=== PATIENT | male | born 1975 | race African-American/Black ===

== ENCOUNTER 2018-11-19 08:50 | Emergency (ER) | payer OTHER ==
[~2018-11-19] VITALS: Ht 165.1 cm; Wt 74.8 kg
[~2018-11-19 08:50] MED LIST: AMOX1TAB10 PO; HYDR-2761 PO; HYDR-3164 PO
[2018-11-19 09:13] VITALS: BP 132/97
[2018-11-19] MEDS ORDERED: IBUP-1060 PO (09:22)
[2018-11-19] MEDS ORDERED: HYDR-3164 PO (09:22)
[2018-11-19] MEDS ORDERED: PENI500T PO (09:22)
--- NOTE | 2018-11-19 09:22 | PHYS DOC ---
Past Medical History Past Medical History: No Pertinent History Past Surgical History: Other Additional Past Surgical Histo: JAW SX FOR MANDIBLE FX Smoking: Cigarettes, Less than 1pk/day Additional Information: 1/2 PACK/DAY Alcohol Use: Occasionally Drug Use: Marijuana Adult General Chief Complaint Chief Complaint: DENTAL PROBLEM HPI HPI Patient is a 43 year old male who presents with complaining of tooth pain. Patient is complaining of left lower jaw and tooth pain for 3 or 4 days associated with facial edema and nausea that gradually getting worse. Patient complaining of subjective fever without shortness of breath and dysphasia. Patient smokes half pack a day . Patient stated he took Tylenol and ibuprofen without improvement of his pain. Review of Systems Review of Systems Constitutional: Reports subjective fever and chills Eyes: Denies change in visual acuity, redness, or eye pain [] HENT: Denies nasal congestion or sore throat , reports dental pain and facial swelling[] Respiratory: Denies cough or shortness of breath [] Cardiovascular: No additional information not addressed in HPI [] GI: Denies abdominal pain, nausea, vomiting, bloody stools or diarrhea [] : Denies dysuria or hematuria [] Musculoskeletal: Denies back pain or joint pain [] Integument: Denies rash or skin lesions [] Neurologic: Denies headache, focal weakness or sensory changes [] Endocrine: Denies polyuria or polydipsia [] All other systems were reviewed and found to be within normal limits, except as documented in this note. Current Medications Current Medications Current Medications Medications (Trade) Dose Ordered Sig/Bony Start Time Stop Time Status Last Admin Dose Admin Acetaminophen/ Hydrocodone Bitart (Lortab 5/325) 1 tab 1X ONCE 11/19/18 09:30 11/19/18 09:31 11/19/18 09:21 1 TAB Allergies Allergies Allergies Coded Allergies Type Severity Reaction Last Updated Verified No Known Drug Allergies 11/25/15 No Physical Exam Physical Exam Constitutional: Well developed, well nourished, mild distress, non-toxic appearance. [] HENT: Normocephalic, atraumatic, left facial edema, bilateral external ears normal, oropharynx moist, no oral exudates, several dental cavities, tooth#17 with tenderness and cavity and gum erythema and tenderness Eyes: PERRLA, EOMI, conjunctiva normal, no discharge. [] Neck: Normal range of motion, no tenderness, supple, no stridor. [] Cardiovascular:Heart rate regular rhythm, no murmur [] Lungs & Thorax: Bilateral breath sounds clear to auscultation [] Extremities: No tenderness, no cyanosis, no clubbing, ROM intact, no edema. [] Neurologic: Alert and oriented X 3, normal motor function, normal sensory function, no focal deficits noted. [] Psychologic: Affect normal, judgement normal, mood normal. [] Current Patient Data Vital Signs Vital Signs Date Time Temp Pulse Resp B/P (MAP) Pulse Ox O2 Delivery O2 Flow Rate FiO2 11/19/18 09:21 18 97 Room Air 11/19/18 09:13 99.0 77 132/97 (109) 99.0 EKG EKG [] Radiology/Procedures Radiology/Procedures [] Course & Med Decision Making Course & Med Decision Making Evaluation of patient in ER showed 43-year-old smoker male patient presented to ER with facial cellulitis and dental abscess. Patient did not want dental block in ER and treated with [place]. Patient was advised to quit smoking and follow up with her dentist. Dragon Disclaimer Dragon Disclaimer This electronic medical record was generated, in whole or in part, using a voice recognition dictation system. Departure Departure Impression: Primary Impression: Dental abscess Additional Impressions: Facial cellulitis Tobacco abuse Tobacco abuse counseling Disposition: HOME, SELF-CARE (at [phone]) Condition: STABLE Referrals: NO PCP (PCP) Patient Instructions: Cellulitis, Dental Abscess, Smoking Cessation, Tips For Success Additional Instructions: Drink plenty of liquids Follow-up with a dentist in 2 or 3 days Return to ER if not getting better Quit smoking Use [id number] Listerine and mouth wash Scripts Penicillin V Potassium (PENICILLIN V POTASSIUM) 500 Mg Tablet 2 TAB PO Q12HR, #40 TAB Prov: LAURYN MAYORGA MD 11/19/18 Hydrocodone/Apap 5-325 (NORCO 5-325 TABLET) 1 Each Tablet 1 TAB PO PRN Q6HRS PRN for PAIN, #10 TAB 0 Refills Prov: LAURYN MAYORGA MD 11/19/18 Ibuprofen (IBUPROFEN) 800 Mg Tablet 800 MG PO PRN Q8HRS PRN for INFLAMMATION, #20 TAB Prov: LAURYN MAYORGA MD 11/19/18 Problem Qualifiers LAURYN MAYORGA MD Nov 19, 2018 09:22
[2018-11-19] MEDS ORDERED: HYDROcodone/APAP 5/325MG 1 TAB TABLET PO ONE (09:30)
== END 2018-11-19 09:32 | disposition home or self-care (01) ==
LOC: ER 08:50
DX: K04.7 Periapical abscess without sinus (principal); L03.211 Cellulitis of face; F17.210 Nicotine dependence, cigarettes, uncomplicated; Z71.6 Tobacco abuse counseling
CPT/HCPCS: 99283

== ENCOUNTER 2021-03-07 20:11 | Emergency (ER) | payer OTHER ==
[~2021-03-07] VITALS: Ht 165.1 cm; Wt 63.0 kg
[~2021-03-07 20:11] MED LIST changes: +IBUP-1060 PO; +PENI500T PO
[2021-03-07] MEDS ORDERED: NEOMY/BACITR/POLYMYXIN OINT PACKET. TP ONE (20:30)
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
[2021-03-07] MEDS ORDERED: LIDOCAINE 2%/EPI 1:100,000 20 ML VIAL. INJ ONE (21:15)
[2021-03-07] MEDS ORDERED: DIPH,PERTUSS(ACELL),TET VAC/PF 0.5 ML SYRINGE. VAX IM ONE (21:15)
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
[2021-03-07 22:00] VITALS: BP 175/85
== END 2021-03-07 22:30 | disposition home or self-care (01) ==
LOC: ER 20:11
DX: S01.111A Laceration without foreign body of right eyelid and periocular area, initial encounter (principal); M54.2 Cervicalgia; F17.200 Nicotine dependence, unspecified, uncomplicated; Y08.89XA Assault by other specified means, initial encounter; Y93.89 Activity, other specified; Y92.89 Other specified places as the place of occurrence of the external cause; Y99.8 Other external cause status
CPT/HCPCS: 12011; 70450; 72125; 90471; 90715; 99285; J3490